=== PATIENT | male | born 1945 | race Caucasian/White ===

== ENCOUNTER 2023-11-02 08:47 | Day surgery (SDC) | payer MEDICARE, OTHER ==
[2023-11-02] MEDS: Lactated Ringers 1,000 ML IV SCH (09:20)
[2023-11-02] MEDS: Sodium Chloride 0.9% 10 ML Syringe FLUSH PRN (09:21)
[2023-11-02] MEDS ORDERED: Propofol 200 MG/20 ML SDV ONE (09:23)
== END 2023-11-02 12:00 | disposition home or self-care (01) ==
LOC: KA.SDS 08:47
PROVIDERS: ATTEND Family Medicine
DX: K57.30 Diverticulosis of large intestine without perforation or abscess without bleeding (principal); K64.4 Residual hemorrhoidal skin tags; E78.2 Mixed hyperlipidemia; I48.0 Paroxysmal atrial fibrillation; F33.1 Major depressive disorder, recurrent, moderate; I25.10 Atherosclerotic heart disease of native coronary artery without angina pectoris; G20.A1 Parkinson's disease without dyskinesia, without mention of fluctuations; K21.9 Gastro-esophageal reflux disease without esophagitis; N40.1 Benign prostatic hyperplasia with lower urinary tract symptoms; C44.612 Basal cell carcinoma of skin of right upper limb, including shoulder; G31.84 Mild cognitive impairment of uncertain or unknown etiology; F51.04 Psychophysiologic insomnia; Z98.890 Other specified postprocedural states; Z79.899 Other long term (current) drug therapy; Z86.010 Personal history of colon polyps
CPT/HCPCS: 45378; J2704; J7120; J3490

== ENCOUNTER 2023-11-16 08:02 | Day surgery (SDC) | payer MEDICARE ==
[2023-11-16] MEDS: Lactated Ringers 1,000 ML IV SCH (08:50)
[2023-11-16] MEDS ORDERED: Propofol 200 MG/20 ML SDV ONE (08:58)
[2023-11-16] MEDS ORDERED: Midazolam 1 MG/ML 2 ML SDV ONE (08:58)
[2023-11-16] MEDS ORDERED: Sodium Chloride 0.9% 10 ML Syringe FLUSH PRN (09:15)
== END 2023-11-16 14:10 | disposition home or self-care (01) ==
LOC: KA.SDS 08:02
PROVIDERS: ATTEND Family Medicine
DX: Z12.11 Encounter for screening for malignant neoplasm of colon (principal); K57.30 Diverticulosis of large intestine without perforation or abscess without bleeding; D12.6 Benign neoplasm of colon, unspecified
CPT/HCPCS: J2250; J2704; J3490; J7120

== ENCOUNTER 2023-12-27 21:33 | Emergency (ER) | payer MEDICARE | END 2023-12-27 22:25 | disposition home or self-care (01) | LOC: KA.ED 21:33 | DX: R04.0 Epistaxis (principal); I25.10 Atherosclerotic heart disease of native coronary artery without angina pectoris; I48.91 Unspecified atrial fibrillation; Z79.01 Long term (current) use of anticoagulants; Z90.49 Acquired absence of other specified parts of digestive tract; Z79.899 Other long term (current) drug therapy; Z88.8 Allergy status to other drugs, medicaments and biological substances; Z88.1 Allergy status to other antibiotic agents | CPT/HCPCS: 30901; 30905; 99283; 99283-25 ==